=== PATIENT | male | born 1965 | race Caucasian/White ===

== ENCOUNTER 2020-06-08 06:17 | Emergency (ER) | payer BC ==
[~2020-06-08] VITALS: Ht 175.3 cm; Wt 79.5 kg
[~2020-06-08 06:17] MED LIST: BACLOFEN10 MG PO; CHANTIX STARTIN0.5 & OR; CLONIDINE0.1 MG PO; FLEXERIL10 MG PO; LISINOP/HCTZ1 TA2 PO; LISINOP/HCTZ1 TAB PO; LOPRESSOR50 M1 PO
[2020-06-08 06:26] VITALS: BP 173/104
[2020-06-08] MEDS ORDERED: AMOXICILLIN500 MG PO (06:30)
[2020-06-08] MEDS ORDERED: NORVASC5 M1 PO (06:37)
== END 2020-06-08 06:43 | disposition home or self-care (01) | DRG 158 ==
LOC: ED 06:17
DX: K04.7 Periapical abscess without sinus (principal); M84.48XA Pathological fracture, other site, initial encounter for fracture

== ENCOUNTER 2021-07-13 17:35 | Emergency (ER) | payer BC ==
[~2021-07-13] VITALS: Ht 175.3 cm; Wt 77.0 kg
[~2021-07-13 17:35] MED LIST changes: +AMOXICILLIN500 MG PO; +NORVASC5 M1 PO
[2021-07-13] MEDS ORDERED: HYDROCO/APAP1 TA9 PO (19:38)
[2021-07-13 20:46] VITALS: BP 124/70
== END 2021-07-13 20:46 | disposition home or self-care (01) | DRG 563 ==
LOC: ED 17:35
PROC: 2W3DX1Z Immobilization of Left Lower Arm using Splint (ICD-10-PCS; principal; 2021-07-13)
DX: S52.502A Unspecified fracture of the lower end of left radius, initial encounter for closed fracture (principal); F17.200 Nicotine dependence, unspecified, uncomplicated; W11.XXXA Fall on and from ladder, initial encounter; Y92.008 Other place in unspecified non-institutional (private) residence as the place of occurrence of the external cause

== ENCOUNTER 2022-10-20 09:12 | Emergency (ER) | payer BC ==
[~2022-10-20] VITALS: Ht 175.3 cm; Wt 68.0 kg
[~2022-10-20 09:12] MED LIST changes: +HYDROCO/APAP1 TA9 PO
[2022-10-20 09:21] VITALS: BP 181/119
[2022-10-20 09:23] VITALS: BP 168/113
[2022-10-20] MEDS ORDERED: PROPRANOLOL HCL20 MG PO (09:24)
[2022-10-20] MEDS ORDERED: WELLBUTRIN SR100 MG PO (09:25)
[2022-10-20 09:30] VITALS: BP 165/111
[2022-10-20 09:45] VITALS: BP 143/104
[2022-10-20] MEDS ORDERED: CLINDAMYCIN300 M1 PO ×2 (09:48→10:03)
[2022-10-20 10:00] VITALS: BP 161/116
[2022-10-20 10:15] VITALS: BP 157/107
== END 2022-10-20 10:26 | disposition home or self-care (01) | DRG 159 ==
LOC: ED 09:12
DX: K08.89 Other specified disorders of teeth and supporting structures (principal)